=== PATIENT | male | born 1975 | race Caucasian/White ===

== ENCOUNTER 2025-03-20 14:46 | Outpatient (AMB) | payer MEDICAID, SELFPAY ==
[2025-03-20 14:50] VITALS: BP 172/90; PULSE 71; TEMP 36.9; O2SAT 96; BMI 33.9
--- NOTE | 2025-03-20 14:50 | MHC.OFFWIV ---
Intake Vital Signs 03/20/25 14:50 Height 5 ft 6 in Weight 210 lb BMI 33.9 BP 172/90 H Blood Pressure Location Lt brachial Position Sitting Pulse 71 Pulse Source Pulse Oximeter Temp 98.5 F Temp Source Oral Pulse Oximetry (%) 96 Oxygen Delivery Method Room Air Intake Visit Reasons: EP High BP 210/108 Intake Note: pt presents with High BP readings this week, denies headaches/chest pain/SOB Allergies No Known Allergies Allergy (Verified 03/20/25 14:50) Do you need a note to return to daycare/school/sports/work: Yes HPI HPI Comments History of Present Illness Details History of Present Illness - The patient is a 49-year-old male presenting with elevated blood pressure readings. - The patient reports consistently high blood pressure readings starting from March 12, with values such as 210/100 mmHg and 190/110 mmHg. - The patient denies associated symptoms such as headaches, dizziness, chest pain, or shortness of breath. - The patient was unaware of his hypertension until recent measurements taken during a dental appointment. - The patient has not seen a doctor in a long time and does not have a primary care physician. - He has been sweating a lot more than normal, no unprovoked acute onset of sweating. Feels fatigued. - He needs dental work done and his dentist would not do the work with these elevated BP readings. Review of Systems - Cardiovascular: Denies chest pain, palpitations, or syncope. - Neurological: Denies headaches or dizziness. - Respiratory: Denies dyspnea or cough. All systems reviewed and are unremarkable except as noted in HPI Physical Exam General: Cooperative, healthy appearing, comfortable, no acute distress and well developed Orientation: Patient oriented x3 Limitations: No limitations Head: Normal to inspection Ears: Hearing grossly normal bilaterally Nose: Normal External nose present Face and sinus: Normal facial exam Eyes: Appearance normal, both eyes and all related structures Neck: Normal visual inspection and Yes full ROM Respiratory: Normal respiratory effort and able to speak in complete sentences. Clear to auscultation throughout, no wheezes, rales and rhonchi. Cardiac: Regular rate and rhythm, Normal S1 and S2, no murmurs, rubs or gallops Skin: No rashes or lesions noted Neuro: Patient oriented x3, gait normal Extremities: Normal to inspection [facility] Medical History (Updated 10/31/25 @ 15:15 by Tabitha Springer PA-C) Elevated blood pressure reading without diagnosis of hypertension Physical Exam Vital Signs: Last Vital Signs Temp 98.5 F 03/20/25 14:50 Pulse 71 03/20/25 14:50 BP 172/90 H 03/20/25 14:50 Pulse Ox 96 03/20/25 14:50 Oxygen Delivery Method Room Air 03/20/25 14:50 BMI result Body Mass Index 33.9 Assessment & Plan Assessment & Plan (1) Elevated blood pressure reading without diagnosis of hypertension: Code(s): R03.0 - Elevated blood-pressure reading, without diagnosis of hypertension Plan: Assessment and Plan - The patient requires initiation of antihypertensive therapy, but this cannot be prescribed without a primary care physician, labs, etc... - Called [facility] PCP building drafting officer in [place] and was able to get patient appt with Dr Murry 10:30am on 03/27/25. - Low salt diet, no smoking, if symptoms such as chest pain, shortness of breath, dizziness or headaches develop prior to your appointment, please go to the Emergency Department. Patient was informed and verbally consented to the use of an ambient scribe for clinic note documentation during this visit. Coding Level of Care Code New Pt Level 3 (20821) Diagnoses Elevated blood pressure reading without diagnosis of hypertension R03.0
--- OUTSIDE RECORDS SUMMARY | 2025-03-20 15:13 | XMS_ITS | Clinical Summary ---
Author Organization [employer] [facility] Address [address] [place] [address] Care Team Providers Care Gauge Operator Name Role Phone Unavailable Primary Care Provider Unavailabl e Encounters Date Type Department Care Team Description 03/10/2025 Population Health Risk Score [facility] Care [facility] (C3) Department [address] [facility] [address] [place] [address] Provider, Population Health Generic from Last 3 Months Social History Tobacco Use Types Packs/Day Years Used Date Smoking Tobacco: Never Assessed Sex and Gender Information Value Date Recorded Sex Assigned at Not on file Legal Sex Male 2:19 AM EDT Gender Identity Not on file Sexual Orientation Not on file Plan of Treatment Health Maintenance Due Date Last Done Comments CT Colonography 1973 Colonoscopy 1973 Colorectal Cancer Screening 1973 Depression Screening 1973 FIT DNA/Cologuard 1973 FIT 1973 FOBT 1973 HIV Screening 1973 Lipid Panel 1973 SDOH Screening 1973 Sigmoidoscopy 1973 Disability Screening 1973 Alcohol/Substance Use Screening 1985 Tobacco Screening 1985 Family Planning (PISQ) 1988 Hepatitis C Screening 1991 DTaP/Tdap/Td Vaccines (1 - Tdap) 1992 Hepatitis B Vaccines (1 of 3 - 19+ 3-dose series) 1992 Pneumococcal Vaccine: 50+ Ye ars (1 of 1 - PCV) 2023 Zoster Vaccines (1 of 2) 2023 COVID-19 Vaccine (1 - 2023-2 5 season) 2025 Influenza Vaccine (#1) 2025 RSV Patients and Pa tients Aged 60 years or older (1 - 1-dose 75+ series) 2048 HIB Vaccines Aged Out No longer eligi ble based on patient's age to complete this topic HPV Vaccines Aged Out No longer eligi ble based on patient's age to complete this topic Hepatitis A Vaccines Aged Out No long er eligible based on patient's age to complete this topic IPV Vaccines Aged Out No longer eligi ble based on patient's age to complete this topic Meningococcal B Vaccine Aged Out No l onger eligible based on patient's age to complete this topic Meningococcal Vaccine Aged Out No carlitos nic eligible based on patient's age to complete this topic RSV under 20 months Aged Out No longe r eligible based on patient's age to complete this topic Rotavirus Vaccines Aged Out No longer eligible based on patient's age to complete this topic
== END 2025-03-20 15:28 | disposition home or self-care (01) ==
PROVIDERS: Visit Provider Physician Assistant
DX: R03.0 Elevated blood-pressure reading, without diagnosis of hypertension (principal)

== ENCOUNTER → 2025-03-20 14:46 | Outpatient (BNVA) | payer MEDICAID, SELFPAY | PROVIDERS: Visit Provider Physician Assistant | DX: I10 Essential (primary) hypertension (principal) | CPT/HCPCS: 99202 ==

== ENCOUNTER 2025-04-01 13:10 | Outpatient (AMB) | payer OTHER, SELFPAY ==
--- NOTE | 2025-04-01 12:54 | A.OFFPC_ITS ---
Vital Signs 04/01/25 13:15 Height 5 ft 6 in Weight 210 lb BMI 33.9 BP 140/86 H Blood Pressure Location Rt brachial Position Sitting Pulse 73 Pulse Source Pulse Oximeter Temp 98.2 F Temp Source Temporal Artery Scan Pulse Oximetry (%) 98 Oxygen Delivery Method Room Air Intake Visit Reasons: Establish Care/ ACCOUNTS PAYABLE SUPERVISOR/ High BP Ordinary Seaman Required: No Accompanied by: Self / Same As Patient Allergies No Known Allergies Allergy (Verified 04/01/25 12:54) Tobacco use date assessed: 04/01/25 Dental Screening Dental Screen Date: 04/01/25 Did you have a dental visit in the last 12 months?: Yes Did you have a dental problem in the last 6 months where you did not have access to dental care?: No HPI HPI Comments History of Present Illness Details The patient is a 49-year-old male presenting for an annual physical exam and management of high blood pressure. He has not seen a primary care provider for many years and reports no previously diagnosed medical conditions or prior surgeries. The patient's blood pressure was noted to be in the 170s at a [facility]. He reports significant anxiety and a phobia related to needles and medical settings, which he believes elevates his blood pressure; it reportedly spiked into the 200s during a dental visit. At home, he monitors his blood pressure with a wrist cuff and has observed it to be as low as 120 and as high as 147, with lower readings at night when he is calm. The patient has massive dental problems with destroyed teeth and is in the process of having them all removed for dentures. He denies any history of smoking, alcohol use, or illicit drug use. His father had lung cancer and was a smoker. Medical History: - No previously diagnosed medical condit ions. - Phobia of needles and medical environm ents. - Severe dental caries requiring full-mo uth extraction for dentures. Surgical History: - No prior surgeries reported. Medications: - Patient is not on any medications. Family History: - Father: History of lung cancer; was a smoker. - Denies family history of heart disease , diabetes, or high blood pressure. Social History: - Tobacco: Never smoked. - Alcohol: Denies use. - Illicit Drugs: Denies use of marijuana , heroin, or cocaine. 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 - Diet: Reports eating high-salt TV dinn ers. - Exercise: Reports doing a lot of runni ng around and working out every night. [facility] Medical History (Updated 04/01/25 @ 13:58 by Tim Murry MD) Hypertension Annual physical exam Elevated blood pressure reading without diagnosis of hypertension Family History Mother No problems noted. Father No problems noted. Social History Housing: Apartment Patient Tobacco Use Status: Never used Tobacco e-Cigarette/Vaping Use: Never Used service: No Current occupational status: unemployed Cognitive needs: No Hearing needs: No Vision needs: No Questionnaire PHQ-9 Over the last 2 weeks, how often have you been bothered by any of the following problems? 1. Little interest or pleasure in doing things: not at all 2. Feeling down, depressed, or hopeless: not at all 3. Trouble falling or staying asleep, or sleeping too much: not at all 4. Feeling tired or having little energy: not at all 5. Poor appetite or overeating: not at all 6. Feeling bad about yourself - or that you are a failure or have let yourself or your family down: not at all 7. Trouble concentrating on things, such as reading the newspaper or watching television: not at all 8. Moving or speaking so slowly that other people could have noticed. Or the opposite - being so fidgety or restless that you have been moving around a lot more than usual: not at all 9. Thoughts that you would be better off or of hurting yourself in some way: not at all Total score: 0 Depression Screening Interpretation: Negative Depression Screening Done: Yes 26486 - PHQ-9 Billing: Yes Source: Developed by Drs. Inderjit Joseph, Mily Franklin, Mick Young and colleagues, with an educational peri from [employer]. Thrive Questionnaire Date Thrive assessed: 04/01/25 I am a: Patient What is your living situation today?: I have a steady place to live Within the past 12 months, did the food you bought not last and you didn't have the money to get more?: Never true Within the past 12 months, did you worry whether your food would run out before you got money to buy more?: Never true Do you have trouble paying for medicines?: No Do you have trouble getting transportation to medical appointments?: No Do you have trouble paying your heating and electricity bill?: No Do you have trouble taking care of your child, family member or friend?: No Do you have trouble with day-to-day activities such as bathing, preparing meals, shopping, managing finances, etc.?: No Are you currently unemployed and looking for a job?: No Are you interested in more education?: No THRIVE Score: 0 AUDIT C Alcohol Use Questionnaire (AUDIT-C) 1. How often do you have a drink containing alcohol?: Never Total Score: 0 Score Reviewed/Action Taken: Yes JUNIOR-7 AMB Questionnaire JUNIOR-7 Date JUNIOR - 7 assessed: 04/01/25 Feeling nervous, anxious, or on edge: 0 = Not at all Not being able to stop or control worryin = Not at all Worrying too much about different things: 0 = Not at all Trouble relaxin = Not at all Being so restless that it is hard to sit still: 0 = Not at all Becoming easily annoyed or irritable: 0 = Not at all Feeling afraid as if something awful might happen: 0 = Not at all Total JUNIOR-7 score (0-4 normal; 5-9 mild; 10-14 moderate; 15-21 severe): 0 Source: Developed by Drs. Inderjit Joseph, Mily Franklin, Mick Young and colleagues, with an educational peri from [employer]. JUNIOR-7 Assessment Billing JUNIOR-7 Assessment Tool: JUNIOR-7 Assessment 17424 Review of Systems Narrative - General: Denies allergies. - Psychiatric: Reports anxiety and phobia toward needles and medical settings. - Dental: Reports major dental problems with destroyed teeth. All systems reviewed & are unremarkable except as reviewed in HPI and above Physical exam (Primary Care) Vital Signs: Last Vital Signs Temp 98.2 F 04/01/25 13:15 Pulse 73 04/01/25 13:15 BP 140/86 H 04/01/25 13:15 Pulse Ox 98 04/01/25 13:15 Oxygen Delivery Method Room Air 04/01/25 13:15 BMI result Body Mass Index 33.9 Tobacco/Smoking Status: Tobacco use Status Tobacco use date assessed 04/01/25 04/01/25 12:55 Patient Tobacco Use Status Never used Tobacco 04/01/25 13:18 e-Cigarette/Vaping Use Never Used 04/01/25 13:18 PHQ-9: PHQ-9 Score PHQ-9: Total score 0 04/01/25 13:25 Depression Screening Interpretation: Negative Thrive Assessment: Date of Thrive Assessment Date Thrive assessed 04/01/25 04/01/25 13:25 Narrative General: +Alert and oriented, Well nourished, No acute distress. Eye: Pupils are equal, round and reactive to light, Intact accommodation, Extraocular movements are intact, Normal conjunctiva, Vision unchanged. HENT: Normocephalic, Atraumatic, Tympanic membranes are clear, Normal hearing, Oral mucosa is moist, No pharyngeal erythema, Ear canals patent. Respiratory: Lungs CTA bilaterally, No wheeze, Respirations are non-labored. Cardiovascular: Regular rate, Regular rhythm, S1 auscultated, S2 auscultated, No murmur, Good pulses equal in all extremities, Normal peripheral perfusion, No edema. Gastrointestinal: Soft, Non-tender, Non-distended, Normal bowel sounds, No organomegaly. Musculoskeletal: Normal range of motion, Normal strength, No tenderness, No swelling, No deformity, Normal gait. Integumentary: Warm, Dry, [place], Intact. Neurologic: Alert, Oriented, Normal sensory, Normal motor function, No focal defects, Cranial Nerves II-XII are grossly intact, Normal deep tendon reflexes. Psychiatric: Cooperative, Anxious mood, Appropriate affect, Normal judgment. Coding Level of Care Code Est Pt Level 4 (88247) Est Pt Prev Care 40-64y(20791) Diagnoses Hypertension, unspecified type I10 Hypertension type: unspecified Annual physical exam Z00.00 Additional Codes PHQ-9 - 75529 - PHQ-9 Billing: Yes ([id number]) JUNIOR-7 Assessment Billing - JUNIOR-7 Assessment Tool: JUNIOR-7 Assessment 09457 ([id number]) Comment [id number] Assessment & Plan Assessment & Plan (1) Hypertension: Comment: - The patient exhibits elevated blood pressure readings in the office, with a maximum of 160/90 mmHg. - While there is a component of white coat hypertension, the readings are still high. - He will be started on amlodipine 5 mg daily. - The patient was instructed to monitor blood pressure at home daily with an arm cuff and to bring the log to his follow-up appointment. Code(s): I10 - Essential (primary) hypertension Category: Medical Qualifiers: Hypertension type: unspecified Qualified Code(s): I10 - Essential (primary) hypertension (2) Annual physical exam: Comment: - A comprehensive blood work panel, including electrolytes, counts, cholesterol, glucose, thyroid, vitamin D, syphilis, hepatitis, and HIV, has been ordered. - A colonoscopy will be ordered for colorectal cancer screening based on age. - The patient was advised to receive the influenza and COVID-19 vaccines. - The patient was counseled on reducing dietary salt, avoiding processed foods like TV dinners, and increasing physical activity to promote weight loss, which will aid in blood pressure reduction. - The patient will return in two weeks for blood pressure management and to review lab results. Code(s): Z00.00 - Encounter for general adult medical examination without abnormal findings Category: Medical Plan: Health Maintenance: - Screening: A colonoscopy for colorectal cancer screening was recommended due to the patient's age. - Immunizations: Recommended influenza and COVID-19 shots. - Healthy Lifestyle: Discussed reducing dietary salt, avoiding processed foods, and engaging in regular exercise to promote weight loss and lower blood pressure. - Diagnostic Labs: Ordered a comprehensive panel including electrolytes, blood counts, cholesterol, glucose, thyroid, vitamin D, syphilis, hepatitis, and HIV. Patient was informed and verbally consented to the use of an ambient scribe for clinic note documentation during this visit. Vital signs reviewed. Comprehensive history, review of systems, and physical exam completed. Medications, allergies, and problem list reviewed and updated. Counseling provided on nutrition, regular exercise, sleep hygiene, and moderation of alcohol use. Discussed age-appropriate screenings (mammogram, colonoscopy, Pap, bone density) and immunizations (flu, COVID, shingles, Tdap). Screened for depression, fall risk, and home safety; no current concerns. Discussed stress management, dental and vision care, and importance of ongoing preventive follow-up. Routine labs ordered for metabolic and lipid screening. Patient educated on healthy lifestyle and agrees with the plan. Plan I discussed with you that your blood pressure readings in the office are high, measuring 160/90 mmHg. I acknowledged that your anxiety in medical settings, a condition known as white coat hypertension, likely contributes to these high readings, but they are still concerning. I explained that managing high blood pressure is important to reduce the risk of cardiac events, strokes, and brain bleeds. We have a plan to start you on a light medication, amlodipine 5 mg daily, and I have sent the prescription to [facility]. I instructed you to buy an arm blood pressure cuff and check your pressure daily, writing down the numbers to bring to our follow-up in two weeks. I have ordered comprehensive blood work for you to complete today. I also recommended a colonoscopy for colon cancer screening due to your age, and advised you to get your flu and COVID-19 shots. We discussed lifestyle improvements, including reducing salt in your diet and starting an exercise regimen to help with weight loss, which is the most effective way to lower blood pressure. We will review everything at your follow-up appointment in two weeks. Orders: Orders Complete Blood Count Auto Diff Today Z00.00 - Encounter for general adult medical examination without abnormal findings Hemoglobin A1c Today Z00.00 - Encounter for general adult medical examination without abnormal findings HIV Ab/Ag Today Z00.00 - Encounter for general adult medical examination without abnormal findings Lipid Panel Today Z00.00 - Encounter for general adult medical examination without abnormal findings Microalbumin, Random (w Creat) Today Z00.00 - Encounter for general adult medical examination without abnormal findings TSH reflex Free T4 Today Z00.00 - Encounter for general adult medical examination without abnormal findings Syphilis Screen Today Z00.00 - Encounter for general adult medical examination without abnormal findings Comprehensive Met. Panel Today Z00.00 - Encounter for general adult medical examination without abnormal findings Hepatitis A,B,C Profile Today Z00.00 - Encounter for general adult medical examination without abnormal findings Vitamin D 25-OH Total Today Z00.00 - Encounter for general adult medical examination without abnormal findings Referrals Open Access Screening Colonoscopy Referral Z12.11 - Encounter for screening for malignant neoplasm of colon Medications: New amlodipine 5 mg PO DAILY 30 tabs 0RF Patient Instructions: - Start taking amlodipine 5 mg once every day as prescribed. - If you feel lightheaded after starting the medication, you can break the pill in half for a few days. - Purchase an arm blood pressure cuff. - Check your blood pressure every day, about an hour after taking your medication, while sitting calmly with your feet on the ground. - Write down your blood pressure readings and bring the log with you to your next appointment. - Reduce the amount of salt in your diet and avoid TV dinners and other processed foods. - Try to start exercising to help with weight loss, which will help lower your blood pressure. - Go to the lab to have your blood drawn today. - Get your flu and COVID-19 shots at the pharmacy. - Schedule a follow-up appointment in two weeks to check on your blood pressure.
[2025-04-01 13:15] VITALS: BP 140/86; PULSE 73; TEMP 36.8; O2SAT 98; BMI 33.9
--- OUTSIDE RECORDS SUMMARY | 2025-04-01 15:55 | XMS_ITS | Clinical Summary ---
Author Organization [employer] [facility] Address [address] [place] [address] Care Team Providers Care Physical Security Engineer Name Role Phone Unavailable Primary Care Provider Unavailabl e Encounters Date Type Department Care Team Description 03/10/2025 Population Health Risk Score [facility] Care [facility] (C3) Department [address] [facility] [address] [place] [address] Provider, Population Health Generic from [...]
== END 2025-04-01 13:41 | disposition home or self-care (01) ==
LOC: HO.HMCHD 13:10
PROVIDERS: PCP Student in an Organized Health Care Education/Training Program; Visit Provider Student in an Organized Health Care Education/Training Program
DX: Z00.00 Encounter for general adult medical examination without abnormal findings (principal); I10 Essential (primary) hypertension

== ENCOUNTER → 2025-04-01 13:10 | Outpatient (BNVA) | payer OTHER, SELFPAY | PROVIDERS: Visit Provider Student in an Organized Health Care Education/Training Program | DX: Z00.00 Encounter for general adult medical examination without abnormal findings (principal); I10 Essential (primary) hypertension; Z13.30 Encounter for screening examination for mental health and behavioral disorders, unspecified | CPT/HCPCS: 96127; 99212; 99396 ==

== ENCOUNTER 2025-04-04 13:40 | Outpatient (REF) | payer OTHER, SELFPAY ==
[2025-04-04 15:14] LABS: MANUAL DIFF FLAG NO
[2025-04-04 15:16] LABS: Hematocrit 45.4 % (42.0-52.0); Hemoglobin 14.7 g/dl (14.0-18.0); Imm Gran Abs Auto 0.04 X10*3/uL (0.00-0.03); Imm Gran Pct Auto 0.4 % (0.0-0.4); Lymphocytes Absolute Auto 2.3 X10*3/uL (1.2-4.9); Mean Corpuscular HGB Conc 32.4 g/dl (31.0-36.0); Mean Corpuscular Hemoglobin 29.3 pg (27.0-33.0); Mean Corpuscular Volume 90.6 fL (80.0-98.0); NRBC Abs Auto 0.000 X10*3/uL (0.0-0.012); NRBC Pct Auto 0.0 /100WBC (0.0-0.2); Platelet Count 268 X10*3/uL (160-400); Red Blood Count 5.01 X10*6/uL (4.60-5.80); White Blood Count 9.3 X10*3/uL (4.8-10.8)
[2025-04-04 15:35] LABS: Alanine Aminotransferase 39 U/L (0-40); Albumin Level 4.5 g/dL (3.5-5.0); Alkaline Phosphatase 92 U/L (39-117); Anion Gap 13 (12-20); Aspartate Amino Transferase 27 U/L (5-37); Blood Urea Nitrogen 17 mg/dL (9-16); Calcium 9.6 mg/dL (8.4-10.2); Carbon Dioxide 28 mmol/L (22-29); Chloride 104 mmol/L (96-108); Cholesterol 222 mg/dL (<200); Estimated Glomerular Filt Rate > 60; HDL Cholesterol 69 mg/dL (>40); Potassium 4.6 mmol/L (3.3-5.1); Sodium 140 mmol/L (135-145); Total Protein 7.9 g/dL (6.5-8.0); Triglycerides 132 mg/dL (<150)
[2025-04-06 08:15] LABS: Syphilis Screen Nonreactive (Nonreactive)
[2025-04-06 08:16] LABS: HBS Num1 0.46 mIU/mL (0-7.99); HBc Num1 0.06 S/CO (0.00-0.79); HBsAGNum1 0.32 S/CO (0.00-0.99); HIV Num 1 0.05 S/CO (0.00-0.99); Hepatitis A Antibody IgM 0.19 Index (0-0.79); Hepatitis B Surface Antigen Negative (Negative); ~HepC Num1 0.14 S/CO (0.00-0.79); ~Hepatitis A Antibody IgM Nonreactive (Nonreactive); ~Hepatitis B Surface Antibody NONREACTIVE (Nonreactive); ~Hepatitis C Antibody Nonreactive (Nonreactive)
== END 2025-04-04 13:41 | disposition home or self-care (01) ==
LOC: HO.HMGCLDS 13:40
PROVIDERS: PCP Student in an Organized Health Care Education/Training Program; Visit Provider Student in an Organized Health Care Education/Training Program
DX: Z00.00 Encounter for general adult medical examination without abnormal findings (principal); Z11.4 Encounter for screening for human immunodeficiency virus [HIV]; Z11.59 Encounter for screening for other viral diseases; Z01.84 Encounter for antibody response examination
CPT/HCPCS: 36415; 80053; 80061; 82306; 83036; 84443; 85025; 86704; 86706; 86709; 86780; 86803; 87340; 87389

== ENCOUNTER 2025-04-06 23:30 | Outpatient (REF) | payer OTHER, SELFPAY ==
--- OUTSIDE RECORDS SUMMARY | 2025-04-08 07:44 | XMS_ITS | Clinical Summary ---
Author Organization [employer] [facility] Address [address] [facility] [address] [place] [address] Care Team Providers Care Chart Changer Name Role Phone Unavailable Primary Care Provider Unavailabl e Encounters Date Type Department Care Team Description 03/10/2025 Population Health Risk Score [facility] Care [facility] (C3) Department [address] [facility] [address] [place] [address] Provider, Population Health Generic from [...] of 2) 2023 COVID-19 Vaccine (1 - 2024-2 6 season) 2025 Influenza Vaccine (#1) 2025 RSV [...]
== END 2025-04-06 23:31 | disposition home or self-care (01) ==
LOC: HO.HMGCLNP 23:30
PROVIDERS: PCP Student in an Organized Health Care Education/Training Program; Visit Provider Student in an Organized Health Care Education/Training Program
DX: Z13.89 Encounter for screening for other disorder (principal)

== ENCOUNTER 2025-04-07 13:30 | Outpatient (REF) | payer OTHER, SELFPAY ==
[2025-04-07 19:46] LABS: Microalbum/Creatinine Ratio Ur 5.3 ug/mg cr (<30)
--- OUTSIDE RECORDS SUMMARY | 2025-04-15 12:08 | XMS_ITS | Clinical Summary ---
Author Organization [employer] [facility] Address [address] [facility] [address] [place] [address] Care Team Providers Care Clinical Safety Specialist Name Role Phone Unavailable Primary Care Provider Unavailabl e Encounters Date Type Department Care Team Description 03/10/2025 Population Health Risk Score [facility] Care [facility] (C3) Department [address] [facility] [address] [place] [address] Provider, Population Health Generic from [...]
== END 2025-04-07 13:31 | disposition home or self-care (01) ==
LOC: HO.LNP 13:30
PROVIDERS: Visit Provider Student in an Organized Health Care Education/Training Program
DX: Z00.00 Encounter for general adult medical examination without abnormal findings (principal)
CPT/HCPCS: 82043; 82570

== ENCOUNTER 2025-04-24 10:12 | Outpatient (AMB) | payer OTHER, SELFPAY ==
--- NOTE | 2025-04-24 10:13 | MHC.PC.OV ---
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 He is currently taking amlodipine 5 mg, but his blood pressure remains elevated, with a reading of 150/100 mmHg in the office and home readings around 140 or 137 mmHg. Recent blood work showed a total cholesterol of 222 mg/dL and an LDL of 127 mg/dL. Other labs were normal, including a thyroid level of 1.74 and a vitamin D level of 49. The patient reports significant life stressors, including receiving an eviction notice and having car problems. He has a dental appointment scheduled for June 16 to have all his teeth extracted. Medical History: - Hypertension - Hypercholesterolemia Surgical History: - Planned full mouth dental extraction on June 16. Medications: - Amlodipine 5 mg for hypertension. Diagnostic Results: - Labs: - Total cholesterol: 222 mg/dL - LDL cholesterol: 127 mg/dL - Thyroid: 1.74 - Vitamin D: 49 Social History - The patient reports significant life stress. - Housing: He is facing an eviction notice. - Finances: He reports his car is in bad shape. PENDING SALE TO [facility] Medical History (Updated 04/24/25 @ 10:27 by Tim Murry MD) Mixed hyperlipidemia Hypertension Annual physical exam Elevated blood pressure reading without diagnosis of hypertension Family History Mother No problems noted. Father No problems noted. Social History Housing: Apartment Patient Tobacco Use Status: Never used Tobacco e-Cigarette/Vaping Use: Never Used service: No Current occupational status: unemployed Cognitive needs: No Hearing needs: No Vision needs: No Questionnaire Thrive Questionnaire Date Thrive assessed: 04/01/25 AUDIT C Alcohol Use Questionnaire (AUDIT-C) 1. How often do you have a drink containing alcohol?: Never 3. How often do you have six or more drinks on one occasion?: Never Total Score: 0 JUNIOR-7 AMB Questionnaire JUNIOR-7 Date JUNIOR - 7 assessed: 04/01/25 Source: Developed by Drs. Inderjit Joseph, Mily Franklin, Mick Young and colleagues, with an educational peri from [employer]. Review of Systems Narrative Review of Systems - General: Denies nausea and vomiting. - Cardiovascular: Denies chest pain. - Respiratory: Denies shortness of breath. - Gastrointestinal: Reports normal bowel function. - Genitourinary: Reports normal urinary function. - Neurological: Denies headaches. All systems reviewed & are unremarkable except as reviewed in HPI and above Physical exam (Primary Care) Vital Signs: Last Vital Signs Temp 96.7 F L 04/24/25 10:16 Pulse 77 04/24/25 10:16 Resp 20 04/24/25 10:16 BP 156/100 H 04/24/25 10:16 Pulse Ox 98 04/24/25 10:16 Oxygen Delivery Method Room Air 04/24/25 10:16 Care Plan Goal for BP management: Elevated Next steps: Increased amloidpine to 10mg BMI result Body Mass Index 33.9 Tobacco/Smoking Status: Tobacco use Status Tobacco use date assessed 04/01/25 04/24/25 10:15 Patient Tobacco Use Status Never used Tobacco 04/24/25 10:15 e-Cigarette/Vaping Use Never Used 04/24/25 10:15 Thrive Assessment: Date of Thrive Assessment Date Thrive assessed 04/01/25 04/24/25 10:15 Narrative Physical Exam General: +Alert and oriented, Well nourished, No acute distress. Eye: Pupils are equal, round and reactive to light, Intact accommodation, Extraocular movements are intact, Normal conjunctiva, Vision unchanged. HENT: Normocephalic, Atraumatic, Tympanic membranes are clear, Normal hearing, Oral mucosa is moist, No pharyngeal erythema, Ear canals patent. Respiratory: Lungs CTA bilaterally, No wheeze, Respirations are non-labored. Cardiovascular: Regular rate, Regular rhythm, S1 auscultated, S2 auscultated, No murmur, Good pulses equal in all extremities, Normal peripheral perfusion, No edema. Gastrointestinal: Soft, Non-tender, Non-distended, Normal bowel sounds, No organomegaly. Musculoskeletal: Normal range of motion, Normal strength, No tenderness, No swelling, No deformity, Normal gait. Integumentary: Warm, Dry, [place], Intact. Neurologic: Alert, Oriented, Normal sensory, Normal motor function, No focal defects, Cranial Nerves II-XII are grossly intact, Normal deep tendon reflexes. Psychiatric: Cooperative, Appropriate mood & affect, Normal judgment. Coding Level of Care Code Est Pt Level 4 (32522) Complex visit Add On G2211 Diagnoses Hypertension, unspecified type I10 Hypertension type: unspecified Mixed hyperlipidemia E78.2 Assessment & Plan Assessment & Plan (1) Hypertension: Comment: - The patient's blood pressure remains uncontrolled on amlodipine 5 mg, with an in-office reading of 150/100 mmHg and high home readings. - The plan is to increase the amlodipine dosage to 10 mg perry Code(s): I10 - Essential (primary) hypertension Category: Medical Qualifiers: Hypertension type: unspecified Qualified Code(s): I10 - Essential (primary) hypertension (2) Mixed hyperlipidemia: Comment: - Recent labs show elevated total cholesterol at 222 mg/dL and LDL at 127 mg/dL. - The patient states he is working on it. - No medication changes were made at this visit. Code(s): E78.2 - Mixed hyperlipidemia Category: Medical Plan: Health Maintenance: - Lab Monitoring: Recent labs showed elevated cholesterol (Total 222, LDL 127) but normal thyroid (1.74) and vitamin D (49) levels. - Dental Care: The patient has a planned full mouth dental extraction on June 16. - Follow-up: A return visit is scheduled in two months for blood pressure management. Patient was informed and verbally consented to the use of an ambient scribe for clinic note documentation during this visit. Plan 3. Acute Situational Stress - The patient is experiencing significant stress from multiple life events, which may be contributing to his elevated blood pressure. - He was advised to relax and focus on himself. I discussed with the patient that his blood pressure remains elevated at 150/100 mmHg despite his current medication. I explained the need to increase his amlodipine dose to 10 mg daily and sent a new prescription. We reviewed his recent lab results, noting the high cholesterol, and he indicated he is working on it. We acknowledged the significant life stressors he is currently facing, and I advised him to relax and focus on himself. We agreed to schedule a follow-up appointment in two months to allow him time to handle these personal matters and to re-evaluate his blood pressure. I let him know that we are available if he needs any assistance. Medications: New amlodipine 10 mg PO DAILY 90 tabs 0RF Discontinued amlodipine Discontinued Reason: Doctor's Order 5 mg PO DAILY 30 tabs 0RF Patient Instructions: - Increase your blood pressure medication, amlodipine, to 10 mg once a day. - Continue to check your blood pressure at home. - Your cholesterol is high. Continue to work on lifestyle changes to improve this. - Try to relax and focus on yourself during this stressful time. - Come back for a follow-up appointment in two months. - Please contact our office if you need any help.
[2025-04-24 10:16] VITALS: BP 156/100; PULSE 77; RESP 20; TEMP 35.9; O2SAT 98; BMI 33.9
== END 2025-04-24 10:26 | disposition home or self-care (01) ==
LOC: HO.HMCHD 10:12
PROVIDERS: PCP Student in an Organized Health Care Education/Training Program; Visit Provider Student in an Organized Health Care Education/Training Program
DX: I10 Essential (primary) hypertension (principal); E78.2 Mixed hyperlipidemia

== ENCOUNTER → 2025-04-24 10:12 | Outpatient (BNVA) | payer OTHER, SELFPAY | PROVIDERS: PCP Student in an Organized Health Care Education/Training Program; Visit Provider Student in an Organized Health Care Education/Training Program | DX: I10 Essential (primary) hypertension (principal); E78.2 Mixed hyperlipidemia; Z79.899 Other long term (current) drug therapy | CPT/HCPCS: 99212 ==